=== PATIENT | female | born 1985 | race Caucasian/White ===

== ENCOUNTER → 2024-02-27 | Outpatient (REF) | payer OTHER | LOC: US 07:37 | PROVIDERS: ATTEND Internal Medicine | DX: E05.00 Thyrotoxicosis with diffuse goiter without thyrotoxic crisis or storm (principal) | CPT/HCPCS: 76536 ==

== ENCOUNTER → 2024-03-28 | Outpatient (REF) | payer OTHER | LOC: US 12:17 | PROVIDERS: ATTEND Internal Medicine | DX: E04.2 Nontoxic multinodular goiter (principal) | CPT/HCPCS: 10005; 88112; 88172; 88173; 88305 ==